=== PATIENT | male | born 1985 | race Asian ===

== ENCOUNTER 2020-06-23 17:23 | Emergency (ER) | payer OTHER ==
[~2020-06-23] VITALS: Ht 162.6 cm; Wt 93.4 kg
[2020-06-23 17:31] VITALS: BP 181/103
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
[2020-06-23] MEDS ORDERED: EXCEDRIN EXTRA1 EAC1 PO (18:27)
[2020-06-23] MEDS ORDERED: IBUPROFEN600 M1 ORAL (18:27)
[2020-06-23] MEDS ORDERED: ZOFRAN4 M1 ORAL (18:27)
[2020-06-23] MEDS ORDERED: Excedrin Migraine tab ORAL ONE (18:30)
[2020-06-23 18:37] VITALS: BP 145/87
== END 2020-06-23 18:37 | disposition home or self-care (01) ==
LOC: EMR 18:05
DX: S00.93XA Contusion of unspecified part of head, initial encounter (principal); I10 Essential (primary) hypertension; E11.9 Type 2 diabetes mellitus without complications; W50.0XXA Accidental hit or strike by another person, initial encounter; Y93.89 Activity, other specified; Y92.9 Unspecified place or not applicable
CPT/HCPCS: 70450; 70486; 99284